=== PATIENT | female | born 1975 | race Caucasian/White ===

== ENCOUNTER → 2018-12-17 | Outpatient (CLI) | payer BC, SELFPAY ==
[2014-03-09 10:50] VITALS: BMI 28.8
[2018-12-17 18:17] LABS: T4 Total, Thyroxin 8.4 ug/dL (4.8-13.9); Thyroid Stim Hormone (TSH) 0.83 uIU/mL (0.358-3.74)
[2018-12-19 16:07] LABS: Endomysial Antibody IgA Negative (Negative)
[2018-12-19 21:27] LABS: Immunoglobulin A 124 mg/dL (87-352); t-Transglutaminase IgA <2 U/mL (0-3)
== END | disposition home or self-care (01) ==
LOC: MTLAB 15:21
PROVIDERS: Family Provider Family Medicine; PCP Family Medicine; Referring Provider Internal Medicine Gastroenterology; Visit Provider Internal Medicine Gastroenterology
DX: R10.9 Unspecified abdominal pain (principal); R19.7 Diarrhea, unspecified
CPT/HCPCS: 36415; 82784; 83516; 84436; 84443; 86140; 86255

== ENCOUNTER → 2024-04-25 | Outpatient (CLI) | payer BC, SELFPAY ==
[2024-04-25 14:48] LABS: Pathologist Comment May follow
[2024-04-25 15:15] LABS: Synovial Fld Mononuclear WBC # 2.393 10^3/ul; Synovial Fld Polynuclear WBC # 19.375 10^3/uL
[2024-04-25 16:38] LABS: Source- Body Fluid SYNOVIAL
[2024-04-25 16:39] LABS: Appearance /Synovial Fluid Cloudy (CLEAR); Color / Synovial Fluid Yellow (Pale Yellow)
[2024-04-25 20:09] LABS: Body Fluid QC Type(s) BF1Q,BF2Q; CRYSTALS, BODY FLUID NO CRYSTALS SEEN; Pathologist Review Will follow
[2024-04-25 20:33] LABS: Lymph 2 %; Monocyte /Synovial Fluid 25 %; Neutrophil 70 % (0-25); Other Cell /Synovial Fluid 3 %
[2024-04-25 20:36] LABS: AUTO B FLUID DILUENT BKGD CT WBC <0.1 RBC <0.01 (W<.1,R<.01)
[2024-04-25 20:37] LABS: Source / Synovial Fluid JOINT
[2024-04-25 22:46] LABS: RBC /Synovial Fluid 80 /mm3 (0)
== END | disposition home or self-care (01) ==
LOC: LAB 14:37 → LABSPEC 14:37
PROVIDERS: PCP Family Medicine; Referring Provider Specialist; Visit Provider Specialist
DX: M25.462 Effusion, left knee (principal)
CPT/HCPCS: 87070; 87075; 87205; 89050; 89051; 89060